=== PATIENT | male | born 1965 | race African-American/Black ===

== ENCOUNTER 2017-04-11 06:09 | Emergency (ER) | payer MEDICAID, OTHER ==
[~2017-04-11] VITALS: Ht 180.3 cm; Wt 68.0 kg
[~2017-04-11 06:09] MED LIST: LORTA5 PO
[2017-04-11 06:10] VITALS: BP 125/81; PULSE 75; RESP 18; TEMP 98.8; O2SAT 98
[2017-04-11] MEDS ORDERED: IOHEXOL 350 MG/ML 10 ML VIAL (for RAD DIAG) IVCONTRAST ONE (06:10)
--- NOTE | 2017-04-11 06:24 | PD ---
HPI Chief Complaint: Abdominal Pain Time Seen by Provider: 06:21 Travel History International Travel<30 days: No Contact w/Intl Traveler<30days: No Traveled to known affect area: No History of Present Illness HPI 52-year-old male here for evaluation of abdominal pain and bright red blood per rectum. Patient reports intermittent lower abdominal cramping over the last week, worse yesterday evening. Yesterday before going to sleep at around 8:00 PM the patient noticed bright red blood in the toilet bowl and on the toilet paper. He states that when he woke up this morning he noticed some bright red blood in his underwear. States that his lower abdominal pain is cramping, intermittent, no modifying factors. He denies fevers or chills. No nausea or vomiting. No urinary symptoms. No history of abdominal surgeries. He is not on any antiplatelets or anticoagulants. Currently the pain is 4 out of 10, however increases to 8 out of 10 at times. He reports a 20 pound weight loss over the last 2 months. No known family history of colon cancer. PFSH Past Medical History Medical History: Denies Significant Hx Arthritis: No Cancer: No Cardiovascular Problems: No Cerebrovascular Accident: No Diabetes: No Diminished Hearing: No Endocrine: No Genitourinary: No Immune Disorder: No Musculoskeletal: No Neurologic: No Psychiatric: No Respiratory: No Past Surgical History Surgical History: No Previous Surgery Abdominal Surgery: No Cardiac Surgery: No Endocrine Surgery: No Eye Surgery: No Oral Surgery: No Thoracic Surgery: No Social History Alcohol Use: Yes (4-5 BEERS A DAYS) Tobacco Use: Yes (7 CIGS /DAY) Substance Use: Yes (MARIJUANA ON WEEKENDS) Allergies-Medications (Allergen,Severity, Reaction): Coded Allergies: No Known Allergies (Verified Adverse Reaction, Unknown, 04/11/17) Reported Meds & Prescriptions Reported Meds & Active Scripts Active No Active Prescriptions or Reported Medications Review of Systems Except as stated in HPI: all other systems reviewed are Neg Physical Exam Narrative GENERAL: Well-developed, well-nourished, comfortable, no apparent distress. SKIN: Focused skin assessment warm/dry. No pallor. HEAD: Atraumatic. Normocephalic. EYES: Pupils equal and round. No scleral icterus. No injection or drainage. No conjunctival pallor. ENT: No nasal bleeding or discharge. Mucous membranes pink and moist. NECK: Trachea midline. No JVD. CARDIOVASCULAR: Regular rate and rhythm. No murmur appreciated. RESPIRATORY: No accessory muscle use. Clear to auscultation. Breath sounds equal bilaterally. GASTROINTESTINAL: Abdomen soft, nondistended. Mild suprapubic tenderness without peritoneal signs. No hernias. Normal bowel sounds. RECTUM: No masses, no fissures, no hemorrhoids, heme-negative brown stool. MUSCULOSKELETAL: No obvious deformities. No clubbing. No cyanosis. No edema. NEUROLOGICAL: Awake and alert. No obvious cranial nerve deficits. Motor grossly within normal limits. Normal speech. PSYCHIATRIC: Appropriate mood and affect; insight and judgment normal. Data Data Last Documented VS Vital Signs Date Time Temp Pulse Resp B/P (MAP) Pulse Ox O2 Delivery O2 Flow Rate FiO2 04/11/17 06:32 82 16 118/77 (91) 100 Room Air 04/11/17 06:10 98.8 Orders Orders Complete Blood Count With Diff (04/11/17 06:25) Comprehensive Metabolic Panel (04/11/17 06:25) Lipase (04/11/17 06:25) Prothrombin Time / Inr (Pt) (04/11/17 06:25) Act Partial Throm Time (Ptt) (04/11/17 06:25) Urinalysis - C+S If Indicated (04/11/17 06:25) Ct Abd/Pel W Iv Contrast(Rout) (04/11/17 06:25) Iv Access Insert/Monitor (04/11/17 06:25) Ecg Monitoring (04/11/17 06:25) Oximetry (04/11/17 06:25) Morphine Inj (Morphine Inj) (04/11/17 06:30) Ondansetron Inj (Zofran Inj) (04/11/17 06:30) Sodium Chlor 0.9% 1000 Ml Inj (Ns 1000 M (04/11/17 06:25) Sodium Chloride 0.9% Flush (Ns Flush) (04/11/17 06:30) Diatrizoate Liq ( Gastroview Liq) (04/11/17 06:27) Oral Contrast - Adult (04/11/17 06:31) Labs Laboratory Tests Test 04/11/17 06:30 04/11/17 06:42 White Blood Count 5.8 TH/MM3 Red Blood Count 4.35 MIL/MM3 Hemoglobin 15.6 GM/DL Hematocrit 42.7 % Mean Corpuscular Volume 98.3 FL Mean Corpuscular Hemoglobin 35.9 PG Mean Corpuscular Hemoglobin Concent 36.5 % Red Cell Distribution Width 12.8 % Platelet Count 235 TH/MM3 Mean Platelet Volume 8.4 FL Neutrophils (%) (Auto) 31.3 % Lymphocytes (%) (Auto) 56.0 % Monocytes (%) (Auto) 11.6 % Eosinophils (%) (Auto) 0.6 % Basophils (%) (Auto) 0.5 % Neutrophils # (Auto) 1.8 TH/MM3 Lymphocytes # (Auto) 3.3 TH/MM3 Monocytes # (Auto) 0.7 TH/MM3 Eosinophils # (Auto) 0.0 TH/MM3 Basophils # (Auto) 0.0 TH/MM3 CBC Comment AUTO DIFF Urine Color YELLOW Urine Turbidity CLEAR Urine pH 5.0 Urine Specific [place] 1.015 Urine Protein NEG mg/dL Urine Glucose (UA) NEG mg/dL Urine Ketones NEG mg/dL Urine Occult Blood TRACE Urine Nitrite NEG Urine Bilirubin NEG Urine Urobilinogen LESS THAN 2.0 MG/DL Urine Leukocyte Esterase NEG Urine RBC 1 /hpf Urine WBC 1 /hpf Microscopic Urinalysis Comment CULT NOT INDICATED MDM Medical Decision Making Medical Screen Exam Complete: Yes Emergency Medical Condition: Yes Medical Record Reviewed: Yes Differential Diagnosis Colitis, diverticulitis, AVM, colon cancer, hemorrhoid Narrative Course Vital signs are within normal limits. At approximately 7:00 AM at the end of my shift the patient was signed out to oncoming provider Dr. Winslow to follow up with labs, imaging studies, and formulate a disposition. HemaPrompt Point of Care Internal Pos. & Neg. Controls: Passed Fecal Specimen Occult Blood: Negative Scripts No Active Prescriptions or Reported Meds eDlano Cortez MD Apr 11, 2017 06:24
[2017-04-11] MEDS ORDERED: SODIUM CHLOR 0.9% 1000 ML INJ 1,000 ML IV SCH (06:25)
[2017-04-11] MEDS ORDERED: DIATRIZOATE MEGLUM/DIATRIZOATE SOD 9 ML CUP ONE (06:27)
[2017-04-11] MEDS ORDERED: SODIUM CHLORIDE 0.9% FLUSH 10 ML FLUSH IV FLUSH PRN (06:30)
[2017-04-11] MEDS ORDERED: MORPHINE SULFATE 4 MG/ML INJ IV PUSH ONE (06:30)
[2017-04-11] MEDS ORDERED: ONDANSETRON HCL 4 MG/2 ML VIAL IVP ONE (06:30)
[2017-04-11 06:32] VITALS: BP 118/77; PULSE 82; RESP 16; O2SAT 100
[2017-04-11 06:48] LABS: AUTOMATED NEUTROPHIL # 1.8 TH/MM3 (1.8-7.7); BASOPHIL % 0.5 % (0.0-2.0); EOSINOPHIL % 0.6 % (0.0-4.0); HEMATOCRIT 42.7 % (39.0-51.0); LYMPHOCYTE # 3.3 TH/MM3 (1.0-4.8); MEAN CELL VOLUME 98.3 FL (80.0-100.0); MEAN CORPUSCULAR HEMOGLOBIN 35.9 PG (27.0-34.0); MONO % 11.6 % (0.0-8.0); NEUT % 31.3 % (16.0-70.0); PLATELET COUNT 235 TH/MM3 (150-450); RED BLOOD COUNT 4.35 MIL/MM3 (4.50-5.90); RED CELL DISTRIBUTION WIDTH 12.8 % (11.6-17.2); WHITE BLOOD COUNT 5.8 TH/MM3 (4.0-11.0)
[2017-04-11 06:51] LABS: HEMO FLAGS AUTO DIFF; MEAN CORPUSCULAR HGB CONC 36.5 % (32.0-36.0)
[2017-04-11 06:53] LABS: BLOOD, URINE TRACE (NEG); GLUCOSE,URINE NEG (NEG); KETONE, URINE NEG (NEG); NITRITE,URINE NEG (NEG); URINE COLOR YELLOW (YELLW/STRAW)
[2017-04-11 06:55] LABS: COMMENT (UR) CULT NOT INDICATED; CULTURE IF INDICATED CULT NOT INDICATED
[2017-04-11 07:05] LABS: ALKALINE PHOSPHATASE 100 U/L (45-117); TOTAL BILIRUBIN ADULT 0.5 MG/DL (0.2-1.0)
--- NOTE | 2017-04-11 07:16 | PD ---
Physical Exam Narrative Received sign out from previous team to follow up with labs, CT and reevaluate. Please see previous provider's note for further details. 52yo M with lower abdominal pain and intermittent blood per rectum. Hemaprompt was negative here. Vital signs normal. Labs reviewed, no leukocytosis. H/H normal at 15.6/42.7. UA showed no leukocyte. Culture not indicated. Pt given morphine, NS IVF and zofran. Pt reevaluated at bedside and pain has improved. Nausea has resolved and pt is tolerating PO. He is well appearing. CT a/p showed sigmoid colon and rectum with possible colitis. Will cover with cipro and flagyl. Return precautions given. Data Data Last Documented VS Vital Signs Date Time Temp Pulse Resp B/P (MAP) Pulse Ox O2 Delivery O2 Flow Rate FiO2 04/11/17 06:32 82 16 118/77 (91) 100 Room Air 04/11/17 06:10 98.8 Orders Orders Complete Blood Count With Diff (04/11/17 06:25) Comprehensive Metabolic Panel (04/11/17 06:25) Lipase (04/11/17 06:25) Prothrombin Time / Inr (Pt) (04/11/17 06:25) Act Partial Throm Time (Ptt) (04/11/17 06:25) Urinalysis - C+S If Indicated (04/11/17 06:25) Ct Abd/Pel W Iv Contrast(Rout) (04/11/17 06:25) Iv Access Insert/Monitor (04/11/17 06:25) Ecg Monitoring (04/11/17 06:25) Oximetry (04/11/17 06:25) Morphine Inj (Morphine Inj) (04/11/17 06:30) Ondansetron Inj (Zofran Inj) (04/11/17 06:30) Sodium Chlor 0.9% 1000 Ml Inj (Ns 1000 M (04/11/17 06:25) Sodium Chloride 0.9% Flush (Ns Flush) (04/11/17 06:30) Diatrizoate Liq ( Gastroview Liq) (04/11/17 06:27) Oral Contrast - Adult (04/11/17 06:31) Iohexol 350 Inj (Omnipaque 350 Inj) (04/11/17 06:10) Labs Laboratory Tests Test 04/11/17 06:30 04/11/17 06:42 White Blood Count 5.8 TH/MM3 Red Blood Count 4.35 MIL/MM3 Hemoglobin 15.6 GM/DL Hematocrit 42.7 % Mean Corpuscular Volume 98.3 FL Mean Corpuscular Hemoglobin 35.9 PG Mean Corpuscular Hemoglobin Concent 36.5 % Red Cell Distribution Width 12.8 % Platelet Count 235 TH/MM3 Mean Platelet Volume 8.4 FL Neutrophils (%) (Auto) 31.3 % Lymphocytes (%) (Auto) 56.0 % Monocytes (%) (Auto) 11.6 % Eosinophils (%) (Auto) 0.6 % Basophils (%) (Auto) 0.5 % Neutrophils # (Auto) 1.8 TH/MM3 Lymphocytes # (Auto) 3.3 TH/MM3 Monocytes # (Auto) 0.7 TH/MM3 Eosinophils # (Auto) 0.0 TH/MM3 Basophils # (Auto) 0.0 TH/MM3 CBC Comment AUTO DIFF Differential Comment AUTO DIFF CONFIRMED Platelet Estimate NORMAL Platelet Morphology Comment NORMAL Tear Drop Cells 1+ Prothrombin Time 10.1 SEC Prothromb Time International Ratio 1.0 RATIO Activated Partial Thromboplast Time 24.3 SEC Blood Urea Nitrogen 21 MG/DL Creatinine 1.06 MG/DL Random Glucose 129 MG/DL Total Protein 9.0 GM/DL Albumin 3.7 GM/DL Calcium Level 8.1 MG/DL Alkaline Phosphatase 100 U/L Aspartate Amino Transf (AST/SGOT) 85 U/L Alanine Aminotransferase (ALT/SGPT) 44 U/L Total Bilirubin 0.5 MG/DL Sodium Level 136 MEQ/L Potassium Level 4.3 MEQ/L Chloride Level 104 MEQ/L Carbon Dioxide Level 25.3 MEQ/L Anion Gap 7 MEQ/L Estimat Glomerular Filtration Rate 89 ML/MIN Lipase 164 U/L Urine Color YELLOW Urine Turbidity CLEAR Urine pH 5.0 Urine Specific [place] 1.015 Urine Protein NEG mg/dL Urine Glucose (UA) NEG mg/dL Urine Ketones NEG mg/dL Urine Occult Blood TRACE Urine Nitrite NEG Urine Bilirubin NEG Urine Urobilinogen LESS THAN 2.0 MG/DL Urine Leukocyte Esterase NEG Urine RBC 1 /hpf Urine WBC 1 /hpf Microscopic Urinalysis Comment CULT NOT INDICATED MDM Supervised Visit with [facility]: No Diagnosis Primary Impression: Colitis Patient Instructions: General Instructions Departure Forms: Tests/Procedures Additional Instruction: Please follow up with [facility] in 3-7 days. Do not drink alcohol while taking metronidazole. Return to the ED if symptoms worsen. Med/Other Pt SpecificInfo: Prescription(s) given Scripts Acetaminophen (Tylenol) 325 Mg Tab 650 MG PO Q6H Y for PAIN SCALE 1 TO 4, #20 TAB 0 Refills Prov: Shawna Winslow DO 04/11/17 Metronidazole (Metronidazole) 500 Mg Tab 500 MG PO TID for Infection for 10 Days, TAB 0 Refills Prov: Shawna Winslow DO 04/11/17 Ciprofloxacin (Cipro) 500 Mg Tab 500 MG PO BID for Infection for 10 Days, #20 TAB 0 Refills Prov: Shawna Winslow DO 04/11/17 Disposition: 01 DISCHARGE HOME Condition: Stable Shawna Winslow DO Apr 11, 2017 07:16
[2017-04-11 07:29] LABS: PLATELET ESTIMATE SMEAR NORMAL (NORMAL); PLATELET MORPHOLOGY NORMAL (NORMAL); SCAN/DIFF AUTO DIFF CONFIRMED; TEARDROP RBCS 1+ (NORMAL)
[2017-04-11 07:32] LABS: PROTHROMBIN TIME - PATIENT 10.1 SEC (9.8-11.6)
[2017-04-11 07:41] LABS: ALT (GPT) 44 U/L (12-78); ANION GAP 7 MEQ/L (5-15); APTT (PATIENT) 24.3 SEC (24.3-30.1); AST (GOT) 85 U/L (15-37); BICARBONATE 25.3 MEQ/L (21.0-32.0); BLOOD UREA NITROGEN 21 MG/DL (7-18); CHLORIDE 104 MEQ/L (98-107); GLOMERULAR FILTRATION RATE 89 ML/MIN (>89); POTASSIUM 4.3 MEQ/L (3.5-5.1); SODIUM (NA) 136 MEQ/L (136-145)
--- NOTE | 2017-04-11 09:10 | RADRPT ---
EXAM DATE/TIME: 04/11/2017 07:52 [facility] COMPARISON: CT ABDOMEN & PELVIS W CONTRAST, May 31, 2015, 12:00. INDICATIONS : Mid abdominal pain IV CONTRAST: 70 cc Omnipaque 350 (iohexol) IV ORAL CONTRAST: Prescribed oral contrast ingested. RADIATION DOSE: 4.51 CTDIvol (mGy) MEDICAL HISTORY : None SURGICAL HISTORY : None. ENCOUNTER: Initial ACUITY: 1 day PAIN SCALE: 5/10 LOCATION: abdomen TECHNIQUE: Volumetric scanning of the abdomen and pelvis was performed. Using automated exposure control and ad justment of the mA and/or kV according to patient size, radiation dose was kept as low as reasonably achievable to obtain optimal diagnostic quality images. DICOM format image data is available electro nically for review and comparison. FINDINGS: LOWER LUNGS: The visualized lower lungs are clear. LIVER: Homogeneous density without lesion. There is no dilation of the biliary tree. No calcified gallston es. SPLEEN: Spleen is small in size. No lesion is present. PANCREAS: Within normal limits. KIDNEYS: Normal in size and shape. There is no mass, stone or hydronephrosis. ADRENAL GLANDS: Within normal limits. VASCULAR: There is no aortic aneurysm. Mild/moderate atherosclerotic disease. BOWEL/MESENTERY: The stomach and small bowel demonstrate no abnormality. Terminal ileum is normal. Proximal colon is w ithin normal limits. Sigmoid colon and rectum demonstrate subtle wall thickening with loss of haustra l pattern in the sigmoid colon. No inflammatory changes are visualized around the colon. There is no free air or free fluid. ABDOMINAL WALL: Within normal limits. RETROPERITONEUM: There is no lymphadenopathy. BLADDER: No wall thickening or mass. REPRODUCTIVE: Within normal limits. INGUINAL: There is no lymphadenopathy or hernia. MUSCULOSKELETAL: No acute abnormality. CONCLUSION: 1. Sigmoid colon and rectum demonstrates a possibly abnormal appearance to the wall with loss of haus tral pattern. Although no inflammatory changes are present, the pattern and appearance raises suspici on for a colitis. Consider followup to ensure resolution. 2. Mild atherosclerotic disease. Quique Alba MD on April 11, 2017 at 8:55 Board Certified Radiologist. This report was verified electronically.
[2017-04-11] MEDS ORDERED: CIPR-9 PO (09:47)
[2017-04-11] MEDS ORDERED: METR1TAB76 PO (09:47)
[2017-04-11] MEDS ORDERED: TYLE325T PO (09:47)
== END 2017-04-11 10:18 | disposition home or self-care (01) ==
LOC: NEPC 06:09
DX: K52.9 Noninfective gastroenteritis and colitis, unspecified (principal); F17.210 Nicotine dependence, cigarettes, uncomplicated
CPT/HCPCS: 74177; 80053; 81001; 83690; 85025; 85610; 85730; 96361; 96374; 96375; 99285; J2270; J2405; J7030; Q9963; Q9967

== ENCOUNTER 2017-04-27 01:32 | Emergency (ER) | payer SELFPAY ==
[~2017-04-27] VITALS: Ht 180.3 cm; Wt 70.0 kg
[~2017-04-27 01:32] MED LIST changes: +CIPR-9 PO; -LORTA5 PO; +METR1TAB76 PO; +TYLE325T PO
[2017-04-27 01:34] VITALS: BP 112/73; PULSE 92; RESP 16; TEMP 98.9; O2SAT 96
--- NOTE | 2017-04-27 02:04 | PD ---
HPI Chief Complaint: Bleeding Time Seen by Provider: 01:49 Travel History International Travel<30 days: No Contact w/Intl Traveler<30days: No Traveled to known affect area: No History of Present Illness HPI The patient is a 52 year old male who presents to the [facility] emergency department with a history of developing blood in his urine yesterday. He denies having any dysuria, urinary frequency, or urinary urgency. He reports that it is associated with a generalized abdominal discomfort. He reports that he was just seen in the emergency department on April 11 related to generalized abdominal pain and blood in his stool. The patient at that time was diagnosed with colitis after an abnormality was noted on his CT scan of the abdomen and pelvis. The patient reports that he has qualified for patient assistance and is establishing with a primary care physician. He denies ever having colonoscopy previously. According to the record he reports that he's had a 20 pound weight loss over the last 2 months. The patient is also noted to have a cystic lesion to the right side of his face which she reports is been present for the last 5 months. He reports that it is nontender. The patient reports having left-sided flank pain. He denies having any known fevers. He reports that he has had chills. He reports that he has an occasional cough that is no worse than usual related to smoking. Otherwise on review of systems , he denies having any neck pain, chest pain, shortness of breath, vomiting, or neurologic symptoms. He reports that he's had diarrhea 3-4 times per day on Tuesday. [facility] Past Medical History Narrative Medical The patient's past medical history is reportedly significant for colitis treated in the emergency department on April 11, 2017. Medical History: Denies Significant Hx Arthritis: No Cancer: No Cardiovascular Problems: No Cerebrovascular Accident: No Diabetes: No Diminished Hearing: No Endocrine: No Genitourinary: No Immune Disorder: No Musculoskeletal: No Neurologic: No Psychiatric: No Respiratory: No Past Surgical History Narrative Surgical The patient denies any past surgical history. Abdominal Surgery: No Cardiac Surgery: No Endocrine Surgery: No Eye Surgery: No Oral Surgery: No Thoracic Surgery: No Social History Alcohol Use: Yes (4-5 BEERS A DAYS) Tobacco Use: Yes (2 BLACK AND MILDS DAILY) Substance Use: Yes (MARIJUANA ON WEEKENDS) Allergies-Medications (Allergen,Severity, Reaction): Coded Allergies: No Known Allergies (Verified Adverse Reaction, Unknown, 04/27/17) Reported Meds & Prescriptions Reported Meds & Active Scripts Active Tylenol (Acetaminophen) 325 Mg Tab 650 Mg PO Q6H PRN Metronidazole 500 Mg Tab 500 Mg PO TID 10 Days Cipro (Ciprofloxacin HCl) 500 Mg Tab 500 Mg PO BID 10 Days Review of Systems Except as stated in HPI: all other systems reviewed are Neg General / Constitutional: No: Fever Eyes: No: Visual changes HENT: No: Headaches Cardiovascular: No: Chest Pain or Discomfort Respiratory: Positive: Cough, No: Shortness of Breath Gastrointestinal: Positive: Diarrhea, Abdominal Pain, Hematochezia, Changes in Bowel Habits, Loss of Appetite, No: Nausea, Vomiting, Hematemesis, Indigestion Genitourinary: Positive: Hematuria, Flank Pain, No: Urgency, Frequency, Dysuria Musculoskeletal: No: Pain Skin: No Rash Neurologic: No: Weakness Psychiatric: No: Depression Endocrine: No: Polydipsia Hematologic/Lymphatic: No: Easy Bruising Physical Exam Narrative General: The patient is a well-developed thin appearing male in no acute distress. Head and Neck exam: Head is normocephalic atraumatic. The patient has evidence of facial asymmetry with a cystic lesion noted involving the right cheek. Eyes: EOMI, pupils are equal round and reactive to light. Nose: Midline septum with pink mucous membranes Mouth: Poor dentition throughout his mouth. On examination of the right cheek in the soft tissues the patient is noted to have a cystic lesion. There is no drainage noted from the lesion. There is no pointing or fluctuance. It is slightly mobile without tenderness on palpation. No drainage from the salivary ducts in the mouth. Moist mucus membranes. Posterior oropharynx is not erythematous. No tonsillar hypertrophy. Uvula midline. Airway patent. Neck: No palpable lymphadenopathy. No nuchal rigidity. No thyromegaly. Cardiovascular: Regular rate and rhythm without murmurs, gallops, or rubs. Lungs: Clear to auscultation bilaterally. No wheezes, rhonchi, or rales. Abdomen: Soft, with reported tenderness on palpation along the bilateral upper quadrants of the abdomen and midepigastric area. Negative Oden's sign. No tenderness on palpation of McBurney's point. Normal bowel sounds are audible. No guarding , rebound, or rigidity. Extremities: No clubbing, cyanosis, or edema. 2+ pulses in all 4 extremities. Back: No spinous process tenderness to palpation. Left-sided CVA tenderness reported on palpation. Neurologic Exam: Grossly nonfocal. Skin Exam: No rash noted. Intact skin that is warm and dry. Data Data Last Documented VS Vital Signs Date Time Temp Pulse Resp B/P (MAP) Pulse Ox O2 Delivery O2 Flow Rate FiO2 04/27/17 02:23 100 Room Air 04/27/17 01:34 98.9 92 16 Orders Orders Complete Blood Count With Diff (04/27/17 01:49) Comprehensive Metabolic Panel (04/27/17 01:49) Prothrombin Time / Inr (Pt) (04/27/17 01:49) Act Partial Throm Time (Ptt) (04/27/17 01:49) Lipase (04/27/17 01:49) Urinalysis - C+S If Indicated (04/27/17 01:49) Westergren Sedimentation Rate (04/27/17 01:49) Magnesium (Mg) (04/27/17 01:49) Iv Access Insert/Monitor (04/27/17 01:49) Ecg Monitoring (04/27/17 01:49) Oximetry (04/27/17 01:49) Electrocardiogram (04/27/17 01:49) Thyroid Stimulating Hormone (04/27/17 01:53) Ct Abd/Pel W/O Iv Contrast (04/27/17 02:33) Mandatory Outpatient Referral (04/27/17 03:39) Labs Laboratory Tests Test 04/27/17 02:05 White Blood Count 8.9 TH/MM3 Red Blood Count 3.47 MIL/MM3 Hemoglobin 11.5 GM/DL Hematocrit 33.3 % Mean Corpuscular Volume 95.8 FL Mean Corpuscular Hemoglobin 33.1 PG Mean Corpuscular Hemoglobin Concent 34.6 % Red Cell Distribution Width 12.4 % Platelet Count 272 TH/MM3 Mean Platelet Volume 7.9 FL Neutrophils (%) (Auto) 61.2 % Lymphocytes (%) (Auto) 26.2 % Monocytes (%) (Auto) 12.0 % Eosinophils (%) (Auto) 0.3 % Basophils (%) (Auto) 0.3 % Neutrophils # (Auto) 5.4 TH/MM3 Lymphocytes # (Auto) 2.3 TH/MM3 Monocytes # (Auto) 1.1 TH/MM3 Eosinophils # (Auto) 0.0 TH/MM3 Basophils # (Auto) 0.0 TH/MM3 CBC Comment DIFF FINAL Differential Comment Erythrocyte Sedimentation Rate 72 mm/hr Prothrombin Time 10.0 SEC Prothromb Time International Ratio 1.0 RATIO Activated Partial Thromboplast Time 27.3 SEC Urine Color YELLOW Urine Turbidity CLEAR Urine pH 5.5 Urine Specific [place] 1.010 Urine Protein TRACE mg/dL Urine Glucose (UA) NEG mg/dL Urine Ketones NEG mg/dL Urine Occult Blood TRACE Urine Nitrite NEG Urine Bilirubin NEG Urine Urobilinogen 0.2 MG/DL Urine Leukocyte Esterase NEG Urine Squamous Epithelial Cells 0-5 /hpf Microscopic Urinalysis Comment CULT NOT INDICATED Blood Urea Nitrogen 5 MG/DL Creatinine 0.93 MG/DL Random Glucose 113 MG/DL Total Protein 7.6 GM/DL Albumin 2.8 GM/DL Calcium Level 8.4 MG/DL Magnesium Level 2.3 MG/DL Alkaline Phosphatase 266 U/L Aspartate Amino Transf (AST/SGOT) 101 U/L Alanine Aminotransferase (ALT/SGPT) 109 U/L Total Bilirubin 0.5 MG/DL Sodium Level 135 MEQ/L Potassium Level 3.8 MEQ/L Chloride Level 101 MEQ/L Carbon Dioxide Level 28.1 MEQ/L Anion Gap 6 MEQ/L Estimat Glomerular Filtration Rate 104 ML/MIN Lipase 96 U/L Thyroid Stimulating Hormone 3rd Gen 1.120 uIU/ML MDM Medical Decision Making Medical Screen Exam Complete: Yes Emergency Medical Condition: Yes Medical Record Reviewed: Yes Differential Diagnosis Kidney stone, versus urinary tumor, versus rhabdomyolysis Narrative Course During the course of the patients emergency department visit, the patients history, examination, and differential diagnosis were reviewed with the patient. The patient was placed on a parent educator with oximetry and frequent blood pressure monitoring. The patient had IV access obtained and blood work sent for analysis. The patient had an ECG done which shows a sinus rhythm heart rate of 89, evidence of early repolarization. This is compared to prior ECGs done at this facility in no acute change has occurred. QRS duration is 82 ms, QTC 395 ms. The patient was initially provided normal saline 1 L IV fluid bolus. The patients laboratory studies were reviewed and remarkable for a white count of 8.9, hemoglobin 11.5, platelets 272 with 12 monocytes, sedimentation rate is elevated at 72 which could indicate an underlying inflammatory bowel condition. CMP is remarkable for sodium of 135, BUN 5, glucose 113, calcium 8.4, AST 101 , ALT 109, alkaline phosphatase 266, total bilirubin 2.8, lipase 96, TSH 1.12, PT 10, PTT 27.3. Urinalysis is unremarkable. Radiology studies were reviewed and remarkable for a CT scan of the abdomen and pelvis without contrast was ordered to evaluate for possible underlying kidney stones or urinary system related mass causing hematuria. CT scan of the abdomen and pelvis showed a small spleen, hepatomegaly, diverticuli without diverticulitis, no other acute abnormality. The patient will be given a mandatory follow-up through the case management system with the engineering supervisor related to the patient's reported intermittent blood in his stool, elevated liver enzymes, and reported weight loss. The patient will additionally be given an outpatient lab slip for viral hepatitis testing and repeat liver function testing panel to be done in 1-2 weeks. The patient was instructed to avoid alcohol and Tylenol. The patient is resting comfortably and feels better, is alert and in no distress. The patients results and examination findings were discussed with the patient. The repeat examination is unremarkable and benign. The history, exam, diagnostic testing, and current condition do not suggest any significant pathology to warrant further testing, continued ED treatment, admission, or surgical evaluation at this point. The vital signs have been stable. The patient does not have uncontrollable pain, intractable vomiting, or other significant symptoms. The patient's condition is stable and appropriate for discharge. The patient will pursue further outpatient evaluation with a primary care physician or other designated or consulting physician as indicated in the discharge instructions. The patient expressed understanding and was agreeable with this plan. Diagnosis Primary Impression: Abdominal pain Qualified Codes: R10.84 - Generalized abdominal pain Additional Impression: Elevated liver enzymes Referrals: Hansel Trevino MD 3 days [facility] Patient Instructions: Abdominal Pain (ED), General Instructions Additional Instructions: The patient is instructed regarding his elevated liver enzymes. The patient is instructed to avoid acetaminophen/Tylenol/alcohol as this can further increase his liver enzymes. He is instructed to have his liver function panel repeated in 1-2 weeks along with a viral hepatitis panel and follow up with a engineering supervisor. Disposition: 01 DISCHARGE HOME Condition: Stable Yola Foster MD Apr 27, 2017 02:04
[2017-04-27 02:16] LABS: AUTOMATED NEUTROPHIL # 5.4 TH/MM3 (1.8-7.7); BASOPHIL % 0.3 % (0.0-2.0); EOSINOPHIL % 0.3 % (0.0-4.0); HEMATOCRIT 33.3 % (39.0-51.0); HEMOGLOBIN 11.5 GM/DL (13.0-17.0); LYMPH % 26.2 % (9.0-44.0); LYMPHOCYTE # 2.3 TH/MM3 (1.0-4.8); MEAN CELL VOLUME 95.8 FL (80.0-100.0); MEAN CORPUSCULAR HEMOGLOBIN 33.1 PG (27.0-34.0); MEAN CORPUSCULAR HGB CONC 34.6 % (32.0-36.0); MEAN PLATELET VOLUME 7.9 FL (7.0-11.0); MONOCYTE # 1.1 TH/MM3 (0-0.9); NEUT % 61.2 % (16.0-70.0); PLATELET COUNT 272 TH/MM3 (150-450); RED BLOOD COUNT 3.47 MIL/MM3 (4.50-5.90); RED CELL DISTRIBUTION WIDTH 12.4 % (11.6-17.2); WHITE BLOOD COUNT 8.9 TH/MM3 (4.0-11.0)
[2017-04-27 02:23] VITALS: O2SAT 100
[2017-04-27 02:47] LABS: ALBUMIN 2.8 GM/DL (3.4-5.0); ALT (GPT) 109 U/L (12-78); AST (GOT) 101 U/L (15-37); BICARBONATE 28.1 MEQ/L (21.0-32.0); BLOOD UREA NITROGEN 5 MG/DL (7-18); CALCIUM 8.4 MG/DL (8.5-10.1); CHLORIDE 101 MEQ/L (98-107); CREATININE 0.93 MG/DL (0.60-1.30); GLOMERULAR FILTRATION RATE 104 ML/MIN (>89); GLUCOSE,RANDOM 113 MG/DL (74-106); LIPASE 96 U/L (73-393); MAGNESIUM 2.3 MG/DL (1.5-2.5); SODIUM (NA) 135 MEQ/L (136-145)
[2017-04-27 02:49] LABS: ALKALINE PHOSPHATASE 266 U/L (45-117); TOTAL BILIRUBIN ADULT 0.5 MG/DL (0.2-1.0); TOTAL PROTEIN 7.6 GM/DL (6.4-8.2)
[2017-04-27 02:56] LABS: BILIRUBIN, URINE NEG (NEG); GLUCOSE,URINE NEG (NEG); KETONE, URINE NEG (NEG); NITRITE,URINE NEG (NEG); PH, URINE 5.5 (5.0-8.5); URINE COLOR YELLOW (YELLW/STRAW); URINE LEUKOCYTE ESTERASE NEG (NEG)
[2017-04-27 02:58] LABS: BLOOD, URINE TRACE (NEG)
[2017-04-27 03:03] LABS: SQUAMOUS EPITHELIAL CELL URINE 0-5 /hpf (0-5)
--- NOTE | 2017-04-27 03:22 | RADRPT ---
EXAM DATE/TIME: 04/27/2017 02:43 [facility] COMPARISON: CT THORAX W CONTRAST, May 31, 2015, 12:00. CT ABDOMEN & PELVIS W/O CONTRAST, July 07, 2012, 20: 14. INDICATIONS : Hematuria. ORAL CONTRAST: No oral contrast ingested. RADIATION DOSE: 2.83 CTDIvol (mGy) MEDICAL HISTORY : None SURGICAL HISTORY : None. ENCOUNTER: Initial ACUITY: 1 day PAIN SCALE: 0/10 LOCATION: Bilateral abdomen TECHNIQUE: Volumetric scanning of the abdomen and pelvis was performed. Using automated exposure control and ad justment of the mA and/or kV according to patient size, radiation dose was kept as low as reasonably achievable to obtain optimal diagnostic quality images. DICOM format image data is available electro nically for review and comparison. FINDINGS: LOWER LUNGS: There is minimal focal density at the right posterior base likely related to atelectasis or consolida tion. LIVER: Liver appears enlarged. Homogeneous density without lesion. There is no dilation of the biliary tree . No calcified gallstones. SPLEEN: The spleen is small. This appearance is unchanged from the prior exam. PANCREAS: Within normal limits. KIDNEYS: Normal in size and shape. There is no mass, stone, or hydronephrosis. ADRENAL GLANDS: Within normal limits. There are scattered after sclerotic calcification seen. VASCULAR: There is no aortic aneurysm. BOWEL/MESENTERY: There are colonic diverticula in the ascending colon without inflammatory change.. ABDOMINAL WALL: Within normal limits. RETROPERITONEUM: There is no lymphadenopathy. BLADDER: No wall thickening or mass. REPRODUCTIVE: There is a prostatic calcification present. INGUINAL: There is no lymphadenopathy or hernia. MUSCULOSKELETAL: Within normal limits for patient age. CONCLUSION: 1. The liver appears enlarged. 2. The spleen is small. 3. Scattered colonic diverticula 4. When compared to the prior exam, no significant change is seen. Quique Albright MD on April 27, 2017 at 3:15 Board Certified Radiologist. This report was verified electronically.
[2017-04-27 04:12] VITALS: BP 105/59; TEMP 98.1
--- NOTE | 2017-04-27 08:49 | EKG ---
Date Performed: 04/27/2017 Time Performed: 02:30:16 PTAGE: 52 years EKG: Sinus rhythm EARLY REPOLARIZATION BORDERLINE ECG No significant change from prior electrocardiogram. PREVIOUS TRACING : 05/31/2015 10.35 DOCTOR: Bang Beth Interpretating Date/Time 04/27/2017 08:48:27
== END 2017-04-27 04:45 | disposition home or self-care (01) ==
LOC: NEPE 01:32
DX: R10.84 Generalized abdominal pain (principal); R19.7 Diarrhea, unspecified; R74.8 Abnormal levels of other serum enzymes; R16.0 Hepatomegaly, not elsewhere classified; R05 Cough; F17.210 Nicotine dependence, cigarettes, uncomplicated; Z79.899 Other long term (current) drug therapy
CPT/HCPCS: 74176; 80053; 81001; 83690; 83735; 84443; 85025; 85610; 85652; 85730; 93005; 99285

== ENCOUNTER 2017-07-21 12:07 | Emergency (ER) | payer SELFPAY ==
[~2017-07-21] VITALS: Ht 180.3 cm; Wt 67.0 kg
[2017-07-21] MEDS ORDERED: IOHEXOL 350 MG/ML 10 ML VIAL (for RAD DIAG) IVCONTRAST ONE (12:08)
[2017-07-21 12:12] VITALS: BP 118/72; PULSE 91; RESP 17; TEMP 98.9; O2SAT 99
[2017-07-21 12:27] VITALS: BP_SYST 135; BP_SYST 137; BP_DIAS 85; BP_DIAS 88; PULSE 90; RESP 12; O2SAT 100
[2017-07-21] MEDS ORDERED: SODIUM CHLORIDE 0.9% FLUSH 10 ML FLUSH IVF PRN (12:30)
--- NOTE | 2017-07-21 12:30 | PD ---
HPI Chief Complaint: GI Complaint Time Seen by Provider: 12:22 Travel History International Travel<30 days: No Contact w/Intl Traveler<30days: No Traveled to known affect area: No History of Present Illness HPI 52-year-old male patient with no significant past medical issues, presents to the ER today with several days history of multiple issues, abdominal pains, diarrhea, left upper quadrant abdominal pain, coughing, left-sided chest discomfort. Chest pains currently measuring at a 7 out of 10. He denies any recent fevers. He states that he had some red blood in his stool today as well. Modifying Factors: None Associated Signs & Symptoms: Abdominal discomfort, left-sided chest pains, coughing, diarrhea, blood in the stool Risk Factors: None PFSH Past Medical History Arthritis: No Cancer: No Cardiovascular Problems: No Cerebrovascular Accident: No Diabetes: No Diminished Hearing: No Endocrine: No Genitourinary: No Immune Disorder: No Musculoskeletal: No Neurologic: No Psychiatric: No Respiratory: No Past Surgical History Surgical History: No Previous Surgery Abdominal Surgery: No Cardiac Surgery: No Endocrine Surgery: No Eye Surgery: No Oral Surgery: No Thoracic Surgery: No Social History Alcohol Use: Yes (occassioanly ) Tobacco Use: Yes (2 BLACK AND MILDS DAILY) Substance Use: Yes (MARIJUANA ON WEEKENDS) Allergies-Medications (Allergen,Severity, Reaction): Coded Allergies: No Known Allergies (Verified Adverse Reaction, Unknown, 07/21/17) Reported Meds & Prescriptions Reported Meds & Active Scripts Active No Active Prescriptions or Reported Medications Review of Systems Except as stated in HPI: all other systems reviewed are Neg Physical Exam Narrative GENERAL: Well-developed middle-aged -[place] male patient currently in mild distress. Awake and oriented 3. SKIN: Focused skin assessment warm/dry. HEAD: Atraumatic. Normocephalic. EYES: Pupils equal and round. No scleral icterus. No injection or drainage. ENT: No nasal bleeding or discharge. Mucous membranes pink and moist. NECK: Trachea midline. No JVD. CARDIOVASCULAR: Regular rate and rhythm. No murmur appreciated. RESPIRATORY: No accessory muscle use. Clear to auscultation. Breath sounds equal bilaterally. GASTROINTESTINAL: Abdomen diffuse abdominal tenderness more pronounced in the left upper quadrant without guarding or rebound, nondistended. Hepatic and splenic margins not palpable. MUSCULOSKELETAL: No obvious deformities. No clubbing. No cyanosis. No edema. NEUROLOGICAL: Awake and alert. No obvious cranial nerve deficits. Motor grossly within normal limits. Normal speech. PSYCHIATRIC: Appropriate mood and affect; insight and judgment normal. Data Data Last Documented VS Vital Signs Date Time Temp Pulse Resp B/P (MAP) Pulse Ox O2 Delivery O2 Flow Rate FiO2 07/21/17 12:27 98 Room Air 07/21/17 12:27 90 12 135/88 (104) 137/85 (102) 07/21/17 12:12 98.9 Orders Orders Electrocardiogram (07/21/17 12:22) Ckmb (Isoenzyme) Profile (07/21/17 12:22) Complete Blood Count With Diff (07/21/17:) Comprehensive Metabolic Panel (07/21/17:) Magnesium (Mg) (07/21/17:) Prothrombin Time / Inr (Pt) (07/21/17:) Act Partial Throm Time (Ptt) (07/21/17:) Troponin I (07/21/17:) Lipase (07/21/17 12:22) Ecg Monitoring (07/21/17:22) Bilateral Bp Monitoring (07/21/17:22) Iv Access Insert/Monitor (07/21/17:) Oximetry (07/21/17:) Oxygen Administration (07/21/17:) Sodium Chloride 0.9% Flush (Ns Flush) (07/21/17 12:30) Chest, Pa & Lat (07/21/17 12:22) Ct Abd/Pel W Iv Contrast(Rout) (07/21/17 12:22) CKMB (07/21/17 12:45) CKMB% (07/21/17 12:45) Iohexol 350 Inj (Omnipaque 350 Inj) (07/21/17 12:08) Ed Discharge Order (07/21/17 15:30) Labs Laboratory Tests Test 07/21/17 12:45 White Blood Count 4.9 TH/MM3 Red Blood Count 4.55 MIL/MM3 Hemoglobin 15.1 GM/DL Hematocrit 43.3 % Mean Corpuscular Volume 95.2 FL Mean Corpuscular Hemoglobin 33.3 PG Mean Corpuscular Hemoglobin Concent 35.0 % Red Cell Distribution Width 13.3 % Platelet Count 218 TH/MM3 Mean Platelet Volume 8.3 FL Neutrophils (%) (Auto) 43.8 % Lymphocytes (%) (Auto) 44.7 % Monocytes (%) (Auto) 10.8 % Eosinophils (%) (Auto) 0.2 % Basophils (%) (Auto) 0.5 % Neutrophils # (Auto) 2.1 TH/MM3 Lymphocytes # (Auto) 2.2 TH/MM3 Monocytes # (Auto) 0.5 TH/MM3 Eosinophils # (Auto) 0.0 TH/MM3 Basophils # (Auto) 0.0 TH/MM3 CBC Comment DIFF FINAL Differential Comment Prothrombin Time 10.8 SEC Prothromb Time International Ratio 1.1 RATIO Activated Partial Thromboplast Time 24.6 SEC Blood Urea Nitrogen 16 MG/DL Creatinine 1.27 MG/DL Random Glucose 116 MG/DL Total Protein 9.0 GM/DL Albumin 3.7 GM/DL Calcium Level 9.1 MG/DL Magnesium Level 2.2 MG/DL Alkaline Phosphatase 143 U/L Aspartate Amino Transf (AST/SGOT) 452 U/L Alanine Aminotransferase (ALT/SGPT) 224 U/L Total Bilirubin 1.1 MG/DL Sodium Level 130 MEQ/L Potassium Level 4.2 MEQ/L Chloride Level 95 MEQ/L Carbon Dioxide Level 24.4 MEQ/L Anion Gap 11 MEQ/L Estimat Glomerular Filtration Rate 72 ML/MIN Total Creatine Kinase 168 U/L Creatine Kinase MB 2.3 NG/ML Troponin I LESS THAN 0.02 NG/ML Lipase 94 U/L MDM Medical Decision Making Medical Screen Exam Complete: Yes Emergency Medical Condition: Yes Medical Record Reviewed: Yes Interpretation(s) Laboratory Tests Test 07/21/17 12:45 Lymphocytes (%) (Auto) 44.7 % (9.0-44.0) Monocytes (%) (Auto) 10.8 % (0.0-8.0) Random Glucose 116 MG/DL (74-106) Total Protein 9.0 GM/DL (6.4-8.2) Alkaline Phosphatase 143 U/L (45-117) Aspartate Amino Transf (AST/SGOT) 452 U/L (15-37) Alanine Aminotransferase (ALT/SGPT) 224 U/L (12-78) Total Bilirubin 1.1 MG/DL (0.2-1.0) Sodium Level 130 MEQ/L (136-145) Chloride Level 95 MEQ/L (98-107) Estimat Glomerular Filtration Rate 72 ML/MIN (>89) Troponin I LESS THAN 0.02 NG/ML Last 24 hours Impressions Chest X-Ray 07/21/17 1222 Signed Impressions: Service Date/Time: July 12:33 - CONCLUSION: No acute disease. Gee Chen MD Abdomen/Pelvis CT 07/21/17 1222 Signed Impressions: Service Date/Time: July 14:45 - CONCLUSION: 1. No acute findings on abdomen and pelvic CT. Mild fatty liver. Maxx Alexandra MD Differential Diagnosis Gastritis versus pancreatitis versus costochondritis versus pneumonia Narrative Course Patient declines getting a rectal exam at this point. H&H is stable and him not able to evaluate his bleeding although he states is red blood with stools. Liver enzymes are elevated compared to last time her lipase is normal. CAT scan shows a fatty liver but did not show any signs of gallstones or any signs of cholecystitis. CAT scan was otherwise unremarkable for any signs of acute processes. Chest x-ray was unremarkable. Vital signs are stable in the ER. Patient dates that he has been told in the past that his liver enzymes are elevated and he states that they had told him to stop drinking. He takes Tylenol quite often but none in the last few days. He was told to avoid alcohol and Tylenol for now. He should follow-up with GI doctor regarding the elevated liver enzymes. Return for any worsening in symptoms as needed. The plan has been discussed with him and he states understanding. Diagnosis Primary Impression: Fatty liver Additional Impressions: Elevated liver enzymes Abdominal pain Referrals: Hansel Trevino MD Additional Instructions: Follow-up with your primary care doctor and maintenance representative. Return for any worsening in pains, or new symptoms as needed. Scripts No Active Prescriptions or Reported Meds Disposition: 01 DISCHARGE HOME Condition: Stable Heydi Barnhart MD Jul 21, 2017 12:30
--- NOTE | 2017-07-21 12:40 | RADRPT ---
EXAM DATE/TIME: 07/21/2017 12:33 [facility] COMPARISON: No previous studies available for comparison. INDICATIONS : Anterior upper chest pain MEDICAL HISTORY : None. SURGICAL HISTORY : None. ENCOUNTER: Initial ACUITY: 4 - 6 days PAIN SCORE: 2/10 LOCATION: chest FINDINGS: PA and lateral views of the chest demonstrate the lungs to be hyperaerated without evidence of mass, infiltrate or effusion. The cardiomediastinal contours are unremarkable. Osseous structures are int act. CONCLUSION: No acute disease. Gee Chen MD on July 21, 2017 at 12:38 Board Certified Radiologist. This report was verified electronically.
[2017-07-21 12:50] LABS: AUTOMATED NEUTROPHIL # 2.1 TH/MM3 (1.8-7.7); BASOPHIL % 0.5 % (0.0-2.0); EOSINOPHIL % 0.2 % (0.0-4.0); HEMATOCRIT 43.3 % (39.0-51.0); HEMOGLOBIN 15.1 GM/DL (13.0-17.0); LYMPH % 44.7 % (9.0-44.0); LYMPHOCYTE # 2.2 TH/MM3 (1.0-4.8); MEAN CELL VOLUME 95.2 FL (80.0-100.0); MEAN CORPUSCULAR HEMOGLOBIN 33.3 PG (27.0-34.0); MEAN PLATELET VOLUME 8.3 FL (7.0-11.0); MONO % 10.8 % (0.0-8.0); MONOCYTE # 0.5 TH/MM3 (0-0.9); NEUT % 43.8 % (16.0-70.0); PLATELET COUNT 218 TH/MM3 (150-450); RED BLOOD COUNT 4.55 MIL/MM3 (4.50-5.90); RED CELL DISTRIBUTION WIDTH 13.3 % (11.6-17.2); WHITE BLOOD COUNT 4.9 TH/MM3 (4.0-11.0)
[2017-07-21 12:59] LABS: INTERNATIONAL NORMALIZED RATIO 1.1 RATIO; PROTHROMBIN TIME - PATIENT 10.8 SEC (9.8-11.6)
[2017-07-21 13:49] LABS: ALBUMIN 3.7 GM/DL (3.4-5.0); ALKALINE PHOSPHATASE 143 U/L (45-117); BICARBONATE 24.4 MEQ/L (21.0-32.0); CALCIUM 9.1 MG/DL (8.5-10.1); CHLORIDE 95 MEQ/L (98-107); CREATININE 1.27 MG/DL (0.60-1.30); GLOMERULAR FILTRATION RATE 72 ML/MIN (>89); GLUCOSE,RANDOM 116 MG/DL (74-106); SODIUM (NA) 130 MEQ/L (136-145); TOTAL BILIRUBIN ADULT 1.1 MG/DL (0.2-1.0); TROPONIN I LESS THAN 0.02 NG/ML (0.02-0.05)
[2017-07-21 14:00] LABS: AST (GOT) 452 U/L (15-37); MAGNESIUM 2.2 MG/DL (1.5-2.5)
[2017-07-21 14:04] LABS: BLOOD UREA NITROGEN 16 MG/DL (7-18)
[2017-07-21 14:30] LABS: ALT (GPT) 224 U/L (12-78)
--- NOTE | 2017-07-21 15:14 | RADRPT ---
EXAM DATE/TIME: 07/21/2017 14:45 [facility] COMPARISON: No previous studies available for comparison. INDICATIONS : Diffuse lower region abdomen pain for one month. IV CONTRAST: 97 cc Omnipaque 350 (iohexol) IV ORAL CONTRAST: No oral contrast ingested. RADIATION DOSE: 6.64 CTDIvol (mGy) MEDICAL HISTORY : Bloody stool SURGICAL HISTORY : None. ENCOUNTER: Initial ACUITY: 1 month PAIN SCALE: 6/10 LOCATION: Bilateral lower quadrant TECHNIQUE: Volumetric scanning of the abdomen and pelvis was performed. Using automated exposure control and ad justment of the mA and/or kV according to patient size, radiation dose was kept as low as reasonably achievable to obtain optimal diagnostic quality images. DICOM format image data is available electro nically for review and comparison. FINDINGS: Lung bases are clear. Mild fatty liver. Spleen is small. The adrenals, kidneys and pancreas unremarka ble. No calcified gallstones. No free fluid. No bowel obstruction. No adenopathy. CONCLUSION: 1. No acute findings on abdomen and pelvic CT. Mild fatty liver. Maxx Alexandra MD on July 21, 2017 at 15:03 Board Certified Radiologist. This report was verified electronically.
--- NOTE | 2017-07-22 11:18 | EKG ---
Date Performed: 07/21/2017 Time Performed: 12:42:53 PTAGE: 52 years EKG: Sinus rhythm WITH SINUS ARRHYTHMIA ST ELEVATION, PROBABLY EARLY REPOLARIZATION BORDERLINE ECG PREVIOUS TRACING : 04/27/2017 02.30 Since the previous tracing, no significant change noted DOCTOR: Subhash Pedroza Interpretating Date/Time 07/22/2017 11:13:25
== END 2017-07-21 15:57 | disposition home or self-care (01) ==
LOC: NEPE 12:07
DX: K76.0 Fatty (change of) liver, not elsewhere classified (principal); R74.8 Abnormal levels of other serum enzymes; R05 Cough; R07.89 Other chest pain; I49.9 Cardiac arrhythmia, unspecified; F17.200 Nicotine dependence, unspecified, uncomplicated; F12.90 Cannabis use, unspecified, uncomplicated
CPT/HCPCS: 71046; 74177; 80053; 82550; 82552; 83690; 83735; 84484; 85025; 85610; 85730; 93005; 99285; Q9967

== ENCOUNTER 2017-08-08 17:20 | Emergency (ER) | payer SELFPAY ==
[~2017-08-08] VITALS: Ht 180.3 cm; Wt 68.2 kg
[2017-08-08 17:34] VITALS: BP 94/59; PULSE 79; RESP 18; TEMP 98.8; O2SAT 95
--- NOTE | 2017-08-12 09:57 | PD ---
Physical Exam Date Seen by Provider: Aug 08, 2017 Time Seen by Provider: 17:34 Narrative 52-year-old male presents to the emergency department for evaluation of worsening bright red blood in his stool. He states he was here a couple weeks ago for the same issue and was told to return if it got worse. States it did stop, but then returned on Tuesday and has been worsening. Current pain is 6/ 10. Moderate severity. Data Data Last Documented VS [facility] Supervised Visit with RAMBO: No Narrative Course 52-year-old male presents to the emergency department for evaluation of rectal bleeding. Patient is initially seen in triage and workup was initiated. Patient left AGAINST MEDICAL ADVICE before he can be moved to medical bed. Diagnosis Primary Impression: Left against medical advice Patient Instructions: General Instructions Departure Forms: Tests/Procedures Scripts No Active Prescriptions or Reported Meds Disposition: 07 AGAINST MEDICAL ADVICE Nikkie Veliz Aug 12, 2017 09:57
== END 2017-08-08 20:31 | disposition left against medical advice (07) ==
LOC: NED 17:20
DX: K62.5 Hemorrhage of anus and rectum (principal)
CPT/HCPCS: 99281

== ENCOUNTER 2017-08-09 11:14 | Emergency (ER) | payer SELFPAY ==
[~2017-08-09] VITALS: Ht 180.3 cm; Wt 68.2 kg
[2017-08-09 11:52] VITALS: BP 103/68; PULSE 82; RESP 18; TEMP 98.3; O2SAT 97
--- NOTE | 2017-08-09 13:14 | PD ---
HPI Chief Complaint: GI Complaint Time Seen by Provider: 13:00 Travel History International Travel<30 days: No Contact w/Intl Traveler<30days: No Traveled to known affect area: No History of Present Illness HPI This is a 52-year-old male presents for evaluation of rectal bleeding. Reports over the past few months he has had intermittent bright red blood per rectum, primarily when he has a bowel movement or wipes. He was seen here on July 21 for evaluation of several issues, one of them being rectal bleeding. He was advised to follow-up with a ancillary services manager who he has made an appointment with for September 11. He reports that the bleeding resolved but now has returned over the past few days. He reports left-sided abdominal pain which is sharp and intermittent. He had similar pain when he was seen here on July 21. At that time he had a CT of the abdomen and pelvis which revealed no acute findings , mild fatty liver. He is not on any anticoagulation. He denies lightheadedness, dizziness, nausea, vomiting, diarrhea, constipation, fevers, chills, black or tarry stools. He has never had a colonoscopy. No other complaints. PFSH Past Medical History Arthritis: No Cancer: No Cardiovascular Problems: No Cerebrovascular Accident: No Diabetes: No Diminished Hearing: No Endocrine: No Genitourinary: No Immune Disorder: No Musculoskeletal: No Neurologic: No Psychiatric: No Respiratory: No Past Surgical History Abdominal Surgery: No Cardiac Surgery: No Endocrine Surgery: No Eye Surgery: No Oral Surgery: No Thoracic Surgery: No Social History Alcohol Use: Yes (occassioanly ) Tobacco Use: Yes (2 BLACK AND MILDS DAILY) Substance Use: Yes (MARIJUANA ON WEEKENDS) Allergies-Medications (Allergen,Severity, Reaction): Coded Allergies: No Known Allergies (Verified Adverse Reaction, Unknown, 07/21/17) Reported Meds & Prescriptions Reported Meds & Active Scripts Active No Active Prescriptions or Reported Medications Review of Systems Except as stated in HPI: all other systems reviewed are Neg Physical Exam Narrative GENERAL: Well-developed well-nourished male no acute distress SKIN: Warm and dry. HEAD: Atraumatic. Normocephalic. EYES: Pupils equal and round. No scleral icterus. No injection or drainage. ENT: No nasal bleeding or discharge. Mucous membranes pink and moist. NECK: Trachea midline. No JVD. CARDIOVASCULAR: Regular rate and rhythm. No murmur appreciated. RESPIRATORY: No accessory muscle use. Clear to auscultation. Breath sounds equal bilaterally. GASTROINTESTINAL: Abdomen soft, mild bilateral lower quadrant tenderness without guarding. Rectal examination reveals no evidence of external hemorrhoid or fissure. Brown heme positive stool noted. MUSCULOSKELETAL: No obvious deformities. No clubbing. No cyanosis. No edema. NEUROLOGICAL: Awake and alert. No obvious cranial nerve deficits. Motor grossly within normal limits. Normal speech. PSYCHIATRIC: Appropriate mood and affect; insight and judgment normal. Data Data Last Documented VS Vital Signs Date Time Temp Pulse Resp B/P (MAP) Pulse Ox O2 Delivery O2 Flow Rate FiO2 08/09/17 13:49 81 18 133/83 (100) 99 Room Air 08/09/17 11:52 98.3 Orders Orders Complete Blood Count With Diff (08/09/17 11:54) Comprehensive Metabolic Panel (08/09/17 11:54) Lipase (08/09/17 11:54) Prothrombin Time / Inr (Pt) (08/09/17 11:54) Act Partial Throm Time (Ptt) (08/09/17 11:54) Type And Screen (08/09/17 11:54) Ed Discharge Order (08/09/17 14:49) Labs Laboratory Tests Test 08/09/17 12:00 08/09/17 14:00 White Blood Count 4.5 TH/MM3 Red Blood Count 4.02 MIL/MM3 Hemoglobin 14.0 GM/DL Hematocrit 38.8 % Mean Corpuscular Volume 96.7 FL Mean Corpuscular Hemoglobin 35.0 PG Mean Corpuscular Hemoglobin Concent 36.2 % Red Cell Distribution Width 13.3 % Platelet Count 177 TH/MM3 Mean Platelet Volume 10.6 FL CBC Comment AUTO DIFF Differential Total Cells Counted 100 Neutrophils % (Manual) 39 % Band Neutrophils % 1 % Lymphocytes % 54 % Monocytes % 6 % Neutrophils # (Manual) 1.8 TH/MM3 Differential Comment FINAL DIFF MANUAL Platelet Estimate NORMAL Platelet Morphology Comment NORMAL Target Cells 1+ Red Cell Morphology Comment Activated Partial Thromboplast Time 22.9 SEC [facility] Medical Decision Making Medical Screen Exam Complete: Yes Emergency Medical Condition: Yes Medical Record Reviewed: Yes Differential Diagnosis Lower GI bleed, upper GI bleed, AV malformation, polyp, malignancy, internal hemorrhoid, external hemorrhoid, anal fissure Narrative Course 52-year-old male with intermittent bright red blood per rectum for the past few months, lower abdominal pain. He was seen here on July 21 with similar symptoms, had a workup at that time, CT abdomen and pelvis revealing no acute abnormalities. He has obtain outpatient gastroenterology follow-up for September 11. Reassuringly today he has a hemoglobin of 14. At this point in time the plan is to have him follow-up with gastroenterology in 1 month as scheduled. He can return for any acutely new or worsening symptoms such as significantly worsening rectal bleeding, lightheadedness, dizziness, severe abdominal pain. He verbalized understanding. [facility] Point of Care Internal Pos. & Neg. Controls: Passed Fecal Specimen Occult Blood: Positive Diagnosis Primary Impression: Rectal bleeding Referrals: Advanced Practice Nurse Psychotherapist Additional Instructions: Follow-up with gastroenterology as scheduled. Return for any acutely new or worsening symptoms. Med/Other Pt SpecificInfo: No Change to Meds Scripts No Active Prescriptions or Reported Meds Disposition: 01 DISCHARGE HOME Condition: Stable Larry Linda Aug 09, 2017 13:14
[2017-08-09 13:24] LABS: HEMATOCRIT 38.8 % (39.0-51.0); MEAN CELL VOLUME 96.7 FL (80.0-100.0); MEAN PLATELET VOLUME 10.6 FL (7.0-11.0); PLATELET COUNT 177 TH/MM3 (150-450); RED BLOOD COUNT 4.02 MIL/MM3 (4.50-5.90); RED CELL DISTRIBUTION WIDTH 13.3 % (11.6-17.2); WHITE BLOOD COUNT 4.5 TH/MM3 (4.0-11.0)
[2017-08-09 13:25] LABS: MEAN CORPUSCULAR HGB CONC 36.2 % (32.0-36.0)
[2017-08-09 13:49] VITALS: BP 133/83; PULSE 81; RESP 18; O2SAT 99
--- NOTE | 2017-08-09 14:04 | PD ---
Data Data Last Documented VS Vital Signs Date Time Temp Pulse Resp B/P (MAP) Pulse Ox O2 Delivery O2 Flow Rate FiO2 08/09/17 13:49 81 18 133/83 (100) 99 Room Air 08/09/17 11:52 98.3 Orders Orders Complete Blood Count With Diff (08/09/17 11:54) Comprehensive Metabolic Panel (08/09/17 11:54) Lipase (08/09/17 11:54) Prothrombin Time / Inr (Pt) (08/09/17 11:54) Act Partial Throm Time (Ptt) (08/09/17 11:54) Type And Screen (08/09/17 11:54) Labs Laboratory Tests Test 08/09/17 12:00 White Blood Count 4.5 TH/MM3 Red Blood Count 4.02 MIL/MM3 Hemoglobin 14.0 GM/DL Hematocrit 38.8 % Mean Corpuscular Volume 96.7 FL Mean Corpuscular Hemoglobin 35.0 PG Mean Corpuscular Hemoglobin Concent 36.2 % Red Cell Distribution Width 13.3 % Platelet Count 177 TH/MM3 Mean Platelet Volume 10.6 FL CBC Comment AUTO DIFF MDM Supervised Visit with RAMBO: Yes Narrative Course I reviewed this case in detail with HCRISTINE Juarez. I evaluated the patient. I reviewed his workup in entirety. He is here for bright red blood per rectum. He was seen for this recently and had extensive workup including CT and labs. Today we did labs. I do not think he requires further imaging at this time. He has an appointment with GI coming up for colonoscopy. That is what he truly needs. Today's hemoglobin is 14 His vitals are normal He is stable for outpatient follow-up If he has significant increase in bleeding he can return for evaluation Diagnosis Primary Impression: Rectal bleeding Scripts No Active Prescriptions or Reported Meds Disposition: 01 DISCHARGE HOME Condition: Stable Andres Rebolledo MD Aug 09, 2017 14:04
[2017-08-09 14:37] LABS: BANDS 1 % (0-6); LYMPHOCYTES 54 % (9-44); MONOCYTES 6 % (0-8); NEUTROPHIL # MANUAL DIFF 1.8 TH/MM3 (1.8-7.7); POLYS (SEG NEUTROPHILS) 39 % (16-70)
[2017-08-09 14:38] LABS: TARGET CELLS 1+ (NORMAL)
[2017-08-09 14:57] LABS: INTERNATIONAL NORMALIZED RATIO 1.1 RATIO; PROTHROMBIN TIME - PATIENT 10.8 SEC (9.8-11.6)
[2017-08-09 15:46] VITALS: BP 124/85
== END 2017-08-09 15:47 | disposition home or self-care (01) ==
LOC: NEPC 11:14
DX: K62.5 Hemorrhage of anus and rectum (principal); R10.30 Lower abdominal pain, unspecified; F17.290 Nicotine dependence, other tobacco product, uncomplicated
CPT/HCPCS: 80053; 83690; 85007; 85027; 85610; 85730; 86850; 86900; 86901; 99283